=== PATIENT | female | born 1970 | race Caucasian/White ===

== ENCOUNTER 2018-02-24 07:50 | Emergency (ER) | payer MEDICAID ==
[~2018-02-24] VITALS: Ht 160 cm; Wt 83.0 kg
[2018-02-24 10:10] LABS: BASOPHILS % 0.5 % (0.0-2.0); HEMATOCRIT. 37.6 % (36.0-48.0); HEMOGLOBIN. 12.9 g/dL (12.0-16.0); LYMPHOCYTES % 15.7 % (20.0-50.0); MEAN CORPUSCULAR HEMOGLOBIN 27.8 pg (28.0-32.0); MEAN PLATELET VOLUME 7.6 fl (7.4-10.4); MONOCYTES % 6.5 % (2.0-8.0); NEUTROPHILS % 71.3 % (40.0-76.0); PLATELET 314 x1000/uL (130-400); RED BLOOD CELL COUNT 4.64 mill/uL (4.2-5.4); RED CELL DISTRIBUTION WIDTH 16.2 % (11.6-14.6)
[2018-02-24 10:15] LABS: CHLORIDE 105 mEq/L (98-107)
[2018-02-24 11:32] VITALS: BP 148/79
[2018-02-24] MEDS ORDERED: ACETAMINOPHEN 650MG/20.3ML UDC PO ONE (12:45)
== END 2018-02-24 14:25 | disposition home or self-care (01) ==
LOC: ER 08:27
DX: R07.89 Other chest pain (principal)
CPT/HCPCS: 36415; 71045; 81025; 83880; 84484; 93005; 99284